=== PATIENT | male | born 1955 | race Caucasian/White ===

== ENCOUNTER 2017-03-01 14:08 | Emergency (ER) | payer BC ==
[~2017-03-01] VITALS: Ht 182.9 cm; Wt 77.0 kg
[2017-03-01 14:09] VITALS: BP 144/81; TEMP 98.2; O2SAT 98
[2017-03-01] MEDS ORDERED: RABIES IMMUNE GLOBULIN INJ 1,500 UNITS/10 ML VIAL IM ONE ×2 (15:30→16:15)
[2017-03-01] MEDS ORDERED: RABIES VACCINE CHICK EMB INJ 2.5 UNITS/ML SYR IM ONE (15:30)
--- NOTE | 2017-03-01 15:54 | RADRPT ---
EXAM DATE/TIME: 03/01/2017 15:13 [place] COMPARISON: No previous studies available for comparison. INDICATIONS : Bitten by bobcat on interphalangeal joint on first metacarpal. MEDICAL HISTORY : None. SURGICAL HISTORY : None. ENCOUNTER: Initial ACUITY: 1 day PAIN SCORE: 5/10 LOCATION: Right thumb FINDINGS: Examination of the first digit of the right hand demonstrates no evidence of fracture or dislocation. No radiopaque foreign bodies are seen. Mild soft tissue swelling of the thumb. CONCLUSION: 1. No acute bony abnormality. Mild osteoarthritis and mild soft tissue swelling of the right thumb. Orlin Zendejas MD on March 01, 2017 at 15:51 Board Certified Radiologist. This report was verified electronically.
[2017-03-01] MEDS ORDERED: BUPIVACAINE HCL PF 0.5% 10 ML VIAL INFIL ONE (16:00)
[2017-03-01] MEDS ORDERED: LIDOCAINE HCL 1% 50 ML VIAL INFIL ONE (16:00)
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
[2017-03-01] MEDS ORDERED: AUGM875T PO (16:39)
--- NOTE | 2017-03-01 16:48 | PD ---
Physical Exam Date Seen by Provider: Mar 01, 2017 Time Seen by Provider: 16:48 Narrative I was asked by Dr. Mckoy to repair laceration of the patient's right dorsal thumb over the PIP joint. Please see his documentation for full history and physical. Data Data Last Documented VS Vital Signs Date Time Temp Pulse Resp B/P Pulse Ox O2 Delivery O2 Flow Rate FiO2 03/01/17 14:09 98.2 88 17 144/81 98 Orders Finger ([id number]) (03/01/17 15:10) Rabies Vaccine Chick Emb Inj (Rabavert I (03/01/17 15:30) Bupivacaine Pf 0.5% Inj (Marcaine Pf 0.5 (03/01/17 16:00) Lidocaine 1% Inj (50 Ml) (Xylocaine 1% I (03/01/17 16:00) Rabies Immune Globulin Inj (Hyperrab S/D (03/01/17 16:15) MDM Supervised Visit with MAURICE: No Procedures Procedure Narrative LACERATION LOCATION: right thumb LENGTH: 2 cm NUMBER OF STITCHES/GALINA: 3 simple interrupted sutures REPAIR: The area of the laceration was prepped with Betadine and sterilely draped. A digital block was completed with 1% lidocaine and 0.5% Marcaine. The wound was copiously irrigated and explored without evidence of foreign body, tendon injury or neurovascular injury. The wound was closed using 4-0 Prolene. This was a single layer repair. A sterile dressing was applied. The patient was advised to keep the dressing clean and dry. Patient tolerated the procedure well. Scripts Amoxicillin-Clavulanate (Augmentin)875-125 mg Vng177 Mg PO BID #20 TAB Ref 0 not for use in CrCl <30 ml/min. Prov:Flakito Mckoy MD 03/01/17 Grace Yanez Mar 01, 2017 16:48
[2017-03-01] MEDS ORDERED: TETANUS/DIPHTHERIA TOXOID ADULT 0.5 ML VIAL IM ONE (17:30)
== END 2017-03-01 17:53 | disposition home or self-care (01) ==
LOC: NEPD 14:08
DX: Z23 Encounter for immunization (principal); W55.01XA Bitten by cat, initial encounter; Y93.F2 Activity, caregiving, lifting; Y92.413 State road as the place of occurrence of the external cause; Y99.2 Volunteer activity
CPT/HCPCS: 12001; 73140; 90375; 90471; 90472; 90675; 90714; 96372

== ENCOUNTER 2017-03-02 17:37 | Emergency (ER) | payer BC ==
[~2017-03-02] VITALS: Ht 182.9 cm; Wt 77.0 kg
[~2017-03-02 17:37] MED LIST: AUGM875T PO
[2017-03-02 17:38] VITALS: BP 122/73; PULSE 82; RESP 16; TEMP 98.1; O2SAT 96
--- NOTE | 2017-03-02 18:19 | PD ---
Physical Exam Time Seen by Provider: 18:17 Narrative 61 year old male presents to ED for re-evaluation of R hand wound. Pt was bitten by a kari cat yesterday. He started the rabies vaccination series yesterday. Mild pain of the right thumb 3/10, throbbing. No fever or chills. Has been taking medication as prescribed. Feels like he isn't getting worse; was instructed to return for re-check. Data Data Last Documented VS Vital Signs Date Time Temp Pulse Resp B/P Pulse Ox O2 Delivery O2 Flow Rate FiO2 03/02/17 17:38 98.1 82 16 122/73 96 Room Air [facility] Medical Record Reviewed: Yes Supervised Visit with MAURICE: No Narrative Course 61 year old male presents to ED for re-evaluation of kari cat bite to his right hand. Appears well. VSS. Condition: Stable Desirae Bell Mar 02, 2017 18:19
--- NOTE | 2017-03-02 19:58 | PD ---
HPI Chief Complaint: Bite or Sting Time Seen by Provider: 19:48 Travel History International Travel<30 days: No Contact w/Intl Traveler<30days: No Traveled to known affect area: No History of Present Illness HPI 61-year-old male presents as instructed for wound recheck. The patient was seen here yesterday after a bobcat bite to the right thumb. He was given rabies vaccination, rabies immunoglobulin and he plans on following up with the health department for the rest of his rabies series. He was started on Augmentin. The wound was loosely sutured. He was instructed to return here for wound recheck. He took the bandages off prior to examination he reports that it feels improved, he had some numbness yesterday in the distal aspect of the thumb which has resolved, decreased pain. He denies any fevers. No other complaints. History Social History Alcohol Use: No Tobacco Use: No Allergies-Medications (Allergen,Severity, Reaction): Coded Allergies: No Known Allergies (Unverified , 03/02/17) Reported Meds & Prescriptions Reported Meds & Active Scripts Active Augmentin (Amoxicillin-Clavulanate) 875-125 mg Tab 875 Mg PO BID not for use in CrCl <30 ml/min. Review of Systems Musculoskeletal: Positive: Pain Skin: Positive Other (positive for bite to right thumb, pain) Physical Exam Narrative GENERAL: Well-developed well-nourished male in no acute distress SKIN: Warm and dry. Well approximated wound to the dorsal aspect of the right mid thumb. Sutures are in place, loosely sutured. There is no erythema or purulent drainage. Extremities: Skin as noted above. The thumb is maintained in full extension with a finger splint to prevent wound dehiscence. Data Data Last Documented VS Vital Signs Date Time Temp Pulse Resp B/P Pulse Ox O2 Delivery O2 Flow Rate FiO2 03/02/17 17:38 98.1 82 16 122/73 96 Room Air MDM Medical Screen Exam Complete: Yes Emergency Medical Condition: No Narrative Course 61-year-old male presents for wound recheck. He reports overall improvement in the discomfort that he was having the right thumb. He is going to continue on his Augmentin prescription and he is going to be following up with the health Department for the remainder of his [place] series. There is no further intervention necessary at this time. He is aware of signs and symptoms of worsening infection that would warrant return to the emergency room. A medical screening exam was performed: At the time of evaluation the presenting medical condition was determined not to be of an emergent nature. The patient was given the option of receiving additional care, but declined. Patient was given options for additional community resources from which to obtain care. The Patient Has Been advised to seek medical attention for their presenting complaint. The patient has been advised to return to the ER at any time if an emergent condition develops. Primary Impression: Encounter for medical screening examination Condition: Stable Owen Ness Mar 02, 2017 19:58
== END 2017-03-02 20:13 | disposition left against medical advice (07) ==
LOC: NEPK 17:37
DX: Z04.9 Encounter for examination and observation for unspecified reason (principal)
CPT/HCPCS: 99281